=== PATIENT | female | born 1980 ===

== ENCOUNTER 2017-05-26 18:43 | Emergency (ER) | payer MEDICAID ==
[2017-05-26 18:56] VITALS: BP 127/92; RESP 18; TEMP 98.2; O2SAT 100
--- NOTE | 2017-05-26 19:12 | ED PDOC ---
Arrival/HPI - General Chief Complaint: Chest Pain Time Seen by Provider: 05/26/17 18:49 Historian: Patient - History of Present Illness Time/Duration: Other (2 days) Symptom Onset: Gradual Symptom Course: Worsening Quality: Aching Severity Level: Mild Activities at Onset: Rest Associated Symptoms (Text): 05/26/17 19:10 Patient complains of a 2 day history of increasing shortness of breath. She states that her breathing feels tight. She also has bilateral upper back pain and bilateral chest pain. No cough congestion or URI. No trauma. No fever or chills. No abdominal pain nausea vomiting. No diaphoresis. She has never experienced this previously. She appears comfortable and in no distress. Past Medical History - Cardiac Hx Cardiac Disorders: No - Pulmonary Hx Respiratory Disorders: No - Neurological Hx Neurological Disorder: No - HEENT Hx HEENT Disorder: No - Renal Hx Renal Disorder: No - Endocrine/Metabolic Hx Endocrine Disorders: No - Hematological/Oncological Hx Blood Disorders: No - Integumentary Hx Dermatological Disorder: No - Musculoskeletal/Rheumatological Hx Musculoskeletal Disorders: No - Gastrointestinal Hx Gastrointestinal Disorders: No - Genitourinary/Gynecological Hx Genitourinary Disorders: No - Psychiatric Hx Psychophysiologic Disorder: No Hx Substance Use: No Family/Social History - Physician Review Nursing Documentation Reviewed: Yes Family/Social History: Unknown Family HX Smoking Status: Light Smoker < 10 Cigarettes Daily Hx Alcohol Use: Yes (weekends) Hx Substance Use: No Allergies/Home Meds Allergies/Adverse Reactions: Allergies No Known Allergies Allergy (Verified 05/26/17 18:51) Review of Systems - Physician Review All systems were reviewed & negative as marked: Yes - Review of Systems Constitutional: Normal ENT: Normal Respiratory: SOB. absent: Cough, Sputum, Wheezing Cardiovascular: Chest Pain. absent: Palpitations, Syncope Gastrointestinal: absent: Abdominal Pain, Constipation, Diarrhea, Nausea, Vomiting Genitourinary Female: absent: Dysuria, Frequency, Hematuria Neurological: absent: Headache, Dizziness, Focal Weakness Physical Exam Vital Signs Temp Resp BP Pulse Ox 05/26/17 18:43 98.2 F 18 127/92 H 100 Temperature: Afebrile Blood Pressure: Normal Pulse: Regular Respiratory Rate: Normal Appearance: Positive for: Well-Appearing, Non-Toxic, Comfortable Pain Distress: Mild Mental Status: Positive for: Alert and Oriented X 3 - Systems Exam Head: Present: Atraumatic, Normocephalic Pupils: Present: PERRL Extroacular Muscles: Present: EOMI Conjunctiva: Present: Normal Ears: Present: NORMAL TM, Normal Canal. No: Erythema Mouth: Present: Moist Mucous Membranes Pharnyx: No: ERYTHEMA, EXUDATE, TONSILS ENLARGED Neck: Present: Normal Range of Motion Respiratory/Chest: Present: Clear to Auscultation, Good Air Exchange, Decreased Breath Sounds, Tender to Palpation (Chest tenderness which reproduces her discomfort.). No: Respiratory Distress, Accessory Muscle Use Cardiovascular: Present: Regular Rate and Rhythm, Normal S1, S2. No: Murmurs Abdomen: Present: Normal Bowel Sounds. No: Tenderness, Distention, Peritoneal Signs, Rebound, Guarding Back: Present: Normal Inspection. No: CVA Tenderness, Midline Tenderness, Paraspinal Tenderness Upper Extremity: Present: Normal Inspection. No: Cyanosis, Edema Lower Extremity: Present: Normal Inspection. No: Edema Neurological: Present: GCS=15, CN II-XII Intact, Speech Normal, Motor Func Grossly Intact Skin: Present: Warm, Dry, Normal Color. No: Rashes Psychiatric: Present: Alert, Oriented x 3, Normal Insight, Normal Concentration Medical Decision Making ED Course and Treatment: 05/26/17 19:12 EKG shows normal sinus rhythm rate approximately [address] or T-wave changes. Pulse oximetry is 100% on room air. 05/26/17 20:31 Symptoms markedly improved post Toradol and DuoNeb. - Lab Interpretations Lab Results: 05/26/17 19:35 05/26/17 19:35 Lab Results 05/26/17 19:35: Sodium 138, Potassium 3.3 L, Chloride 97, Carbon Dioxide 32, Anion Gap 12, BUN 10, Creatinine 0.7, Est GFR ( Amer) > 60, Est GFR (Non- Af Amer) > 60, Random Glucose 97, Calcium 9.6, Total Bilirubin 1.0, AST 49 H, ALT 50, Alkaline Phosphatase 60, Lactate Dehydrogenase 371, Total Creatine Kinase 78, Troponin I < 0.01, NT-Pro-B Natriuret Pep 46.5, Total Protein 7.5, Albumin 4.5, Globulin 3.0, Albumin/Globulin Ratio 1.5 05/26/17 19:35: D-Dimer, Quantitative 0.20 05/26/17 19:35: WBC 7.0, RBC 4.48, Hgb 14.3, Hct 40.5, MCV 90.4, MCH 31.9, MCHC 35.3, RDW 13.1, Plt Count 223, MPV 10.1, Gran % 48.1 L, Lymph % (Auto) 39.7 H, [place] % (Auto) 8.7 H, Eos % (Auto) 2.6, Baso % (Auto) 0.9, Gran # 3.37, Lymph # 2.8, [place] # 0.6, Eos # 0.2, Baso # 0.06 - RAD Interpretation Radiology Orders: 05/26/17 19:21 CHEST PORTABLE [RAD] Stat Chest: One view shows no infiltrate effusion or cardiomegaly. No pneumothorax. Sole Conforming Machine Operator: ED Physician - Medication Orders Current Medication Orders: Potassium Chloride (K-Dur 20 Meq Er Tab) 20 meq PO STAT STA Stop: 05/26/17 20:26 Discontinued Medications Albuterol/Ipratropium (Duoneb 3 Mg/0.5 Mg (3 Ml) Ud) 3 ml IH ONCE STA Stop: 05/26/17 19:22 Last Admin: 05/26/17 19:54 Dose: 3 ml Ketorolac Tromethamine (Toradol) 30 mg IVP ONCE ONE Stop: 05/26/17 19:22 Last Admin: 05/26/17 19:54 Dose: 30 mg MAR Pain Assessment Document 05/26/17 19:54 SS (Rec: 05/26/17 19:55 SS [id number]) Pain Reassessment Is this a pain reassessment? No Sleep Is patient sleeping during reassessment? No Presence of Pain Presence of Pain Yes IVP Administration Document 05/26/17 19:54 SS (Rec: 05/26/17 19:55 SS [id number]) Charges for Administration # of IVP Administrations 1 Disposition/Present on Arrival - Present on Arrival Any Indicators Present on Arrival: No History of DVT/PE: No History of Uncontrolled Diabetes: No Urinary Catheter: No History of Decub. Ulcer: No History Surgical Site Infection Following: None - Disposition Have Diagnosis and Disposition been Completed?: Yes Diagnosis: Dyspnea, Pleurisy Disposition: HOME/ ROUTINE Disposition Time: 20:31 Patient Plan: Discharge Condition: IMPROVED Discharge Instructions (ExitCare): Pleurisy (ED), Dyspnea (ED) Additional Instructions: Follow-up with PMD. Follow-up in the ER as needed. Prescriptions: Naproxen [Naprosyn] 500 mg PO BID #14 tab Albuterol HFA [Ventolin HFA 90 mcg/actuation (8 g)] 2 puff IH [id number] #1 puff Forms: [employer] (Lao)
[2017-05-26] MEDS ORDERED: Albuterol-Ipratrop 3 mg / 0.5 (3 ml) UD IH STA (19:21)
[2017-05-26 20:04] LABS: ALB/GLOB RATIO 1.5 (1.1-1.8); ALKALINE PHOSPHATASE 60 U/L (38-126); ALT/SGPT 50 U/L (7-56); AST/SGOT 49 U/L (14-36); BLOOD UREA NITROGEN 10 mg/dL (7-21); CALCIUM 9.6 mg/dL (8.4-10.5); CARBON DIOXIDE 32 mmol/L (21-33); CHLORIDE 97 mmol/L (95-110); GFR AFRICAN-AMERICAN > 60; GLUCOSE,RANDOM 97 mg/dL (70-110); POTASSIUM 3.3 mmol/L (3.6-5.0); SODIUM 138 mmol/L (132-148); TOTAL PROTEIN 7.5 g/dL (5.8-8.3)
[2017-05-26 20:10] LABS: TROPONIN I < 0.01 ng/mL
[2017-05-26 20:18] LABS: BASO # 0.06 K/mm3 (0.0-2.0); BASO % 0.9 % (0.0-3.0); EOS # 0.2 (0.0-0.7); EOS % 2.6 % (1.5-5.0); GRAN # 3.37 (1.4-6.5); GRAN % 48.1 % (50.0-68.0); HEMATOCRIT 40.5 % (36.0-48.0); LYMPH # 2.8 (1.2-3.4); LYMPH % 39.7 % (22.0-35.0); MEAN CELL VOLUME 90.4 fl (80.0-105.0); MEAN CORPUSCULAR HEMOGLOBIN 31.9 pg (25.0-35.0); MEAN CORPUSCULAR HGB CONC 35.3 g/dl (31.0-37.0); MEAN PLATELET VOLUME 10.1 fl (7.0-11.0); MONO # 0.6 (0.1-0.6); MONO % 8.7 % (1.0-6.0); RED CELL DISTRIBUTION WIDTH 13.1 % (11.5-14.5)
[2017-05-26] MEDS ORDERED: Potassium Chloride 20 mEq ER Tab PO STA (20:25)
--- NOTE | 2017-05-27 08:48 | RAD ---
HISTORY: cp COMPARISON: No prior. FINDINGS: LUNGS: No active pulmonary disease. PLEURA: No significant pleural effusion identified, no pneumothorax apparent. CARDIOVASCULAR: Normal. OSSEOUS STRUCTURES: No significant abnormalities. VISUALIZED UPPER ABDOMEN: Normal. OTHER FINDINGS: None. IMPRESSION: No active disease.
--- NOTE | 2017-05-27 22:20 | CARD ---
APPROVED REPORT EKG Measurement Heart [id number] <Conclusion> Normal sinus rhythm Normal ECG
== END 2017-05-26 20:51 | disposition home or self-care (01) ==
LOC: ED 18:43
DX: R09.1 Pleurisy (principal); R06.00 Dyspnea, unspecified; F17.210 Nicotine dependence, cigarettes, uncomplicated
CPT/HCPCS: 71010; 80053; 82550; 83615; 83880; 84484; 85025; 85378; 93005; 96374; 99283; J1885

== ENCOUNTER 2018-02-05 21:18 | Emergency (ER) | payer MEDICAID ==
[2018-02-05 21:31] VITALS: PULSE 80; TEMP 98.9; O2SAT 100
[2018-02-05] MEDS ORDERED: Tmp-Smz 800 mg-160 mg DS Tab PO STA (21:52)
--- NOTE | 2018-02-05 21:58 | ED PDOC ---
Arrival/HPI - General Historian: Patient - History of Present Illness Time/Duration: < week Symptom Onset: Sudden Symptom Course: Worsening Quality: Burning Severity Level: 4 <Harry Marks - Last Filed: 02/05/18 22:02> - History of Present Illness Activities at Onset: Rest Context: Home <Lamberto Wei - Last Filed: 02/06/18 19:36> - General Chief Complaint: Female Genitourinary Time Seen by Provider: 02/05/18 21:38 - History of Present Illness Narrative History of Present Illness (Text): 37 year old female presents burning with pain while urinating which began Friday. Patient states since yesterday she has also seen blood when she wipes after urinating. Patient has taken Motrin, cystic, and other home remedies with no help. Patient denies fever, chills, SOB, CP, abdominal pain, nausea, vomiting or any other complaints. Patient states last menstrual period was Friday and normal flow. 02/05/18 21:55 (Harry Marks) Past Medical History - Provider Review Nursing Documentation Reviewed: Yes - Cardiac Hx Cardiac Disorders: No - Pulmonary Hx Respiratory Disorders: No - Neurological Hx Neurological Disorder: No - HEENT Hx HEENT Disorder: No - Renal Hx Renal Disorder: No - Endocrine/Metabolic Hx Endocrine Disorders: No - Hematological/Oncological Hx Blood Disorders: No - Integumentary Hx Dermatological Disorder: No - Musculoskeletal/Rheumatological Hx Musculoskeletal Disorders: No - Gastrointestinal Hx Gastrointestinal Disorders: No - Genitourinary/Gynecological Hx Genitourinary Disorders: No - Psychiatric Hx Psychophysiologic Disorder: No Hx Substance Use: No <Harry Marks - Last Filed: 02/05/18 22:02> - Travel History Have you recently traveled outside [place] w/in the past 3 mons?: No - Past History Past History: Non-Contributing - Infectious Disease Hx of Infectious Diseases: None - Reproductive Currently : Unknown <Lamberto Wei - Last Filed: 02/06/18 19:36> Family/Social History - Physician Review Nursing Documentation Reviewed: Yes Family/Social History: No Known Family HX Smoking Status: Light Smoker < 10 Cigarettes Daily Hx Alcohol Use: Yes (weekends) Hx Substance Use: No <Harry Marks - Last Filed: 02/05/18 22:02> Hx Substance Use Treatment: No <Lamberto Wei - Last Filed: 02/06/18 19:36> Allergies/Home Meds <Harry Marks - Last Filed: 02/05/18 22:02> <Lamberto Wei - Last Filed: 02/06/18 19:36> Allergies/Adverse Reactions: Allergies No Known Allergies Allergy (Verified 02/05/18 21:27) Review of Systems - Review of Systems Constitutional: Normal Eyes: Normal ENT: Normal Respiratory: Normal Cardiovascular: Normal Gastrointestinal: Normal Genitourinary Female: Dysuria, Frequency, Hematuria. absent: Normal Musculoskeletal: Normal Skin: Normal Neurological: Normal Endocrine: Normal Hemo/Lymphatic: Normal Psychiatric: Normal <Harry Marks - Last Filed: 02/05/18 22:02> Physical Exam Temperature: Afebrile Blood Pressure: Hypertensive Pulse: Regular Respiratory Rate: Normal Appearance: Positive for: Well-Appearing, Non-Toxic, Comfortable Pain Distress: Mild Mental Status: Positive for: Alert and Oriented X 3 - Systems Exam Head: Present: Atraumatic, Normocephalic Pupils: Present: PERRL Extroacular Muscles: Present: EOMI Conjunctiva: Present: Normal Mouth: Present: Moist Mucous Membranes Neck: Present: Normal Range of Motion Respiratory/Chest: Present: Clear to Auscultation. No: Respiratory Distress Cardiovascular: Present: Regular Rate and Rhythm, Normal S1, S2. No: Murmurs Abdomen: Present: Normal Bowel Sounds. No: Tenderness, Distention Genitourinary/Pelvic Exam: No: Adenexal Tenderness Upper Extremity: No: Edema Lower Extremity: No: Edema Neurological: Present: GCS=15, CN II-XII Intact Skin: Present: Warm <Harry Marks - Last Filed: 02/05/18 22:02> - Systems Exam Back: Present: Normal Inspection. No: CVA Tenderness, Midline Tenderness Upper Extremity: Present: Normal Inspection, Normal ROM, NORMAL PULSES Lower Extremity: Present: Normal Inspection, NORMAL PULSES, Normal ROM Neurological: Present: Speech Normal Skin: Present: Normal Color Psychiatric: Present: Alert, Oriented x 3 <Lamberto Wei - Last Filed: 02/06/18 19:36> Vital Signs Temp Pulse Resp BP Pulse Ox 02/05/18 22:12 80 16 138/88 100 02/05/18 21:28 98.9 F 80 18 142/91 H 100 Medical Decision Making - Lab Interpretations I have reviewed the lab results: Yes <Harry Marks - Last Filed: 02/05/18 22:02> Re-evaluation Time: 23:00 Reassessment Condition: Improving,but remains with symptoms - Lab Interpretations Interpretation: Abnormal lab values (+ UTI) <Lamberto Wei - Last Filed: 02/06/18 19:36> ED Course and Treatment: Plan -UA, urine culture -Bactrim, motrin, pyridium -reasses -DC with abx and pyridium 02/05/18 21:58 (Harry Marks) I performed the hx and physical exam of the patient and discussed their mgt with the RESIDENT. I reviewed the RESIDENT's NOTE and agree with the assessment and plan of care. exam: General: alert/awake, GCS = 15, oriented x 3, resting in bed, mildly ununcomfortable, cooperative, interactive; NAD Head: NC/AT EYE: PERRLA, EOMI, sclera anicteric, no nystagmus, no photophobia Facial: WNL Oral: uvula/tongue are midline, no exudate/lesions, no drooling/stridor, no dysphonia; intact dentitions NECK: intact ROM, no midline tenderness, no nuchal rigidity, no meningeal signs ; no step off Chest: CTA b/l, no w/r/r; no tachypenia, no accessory muscle use noted Cardiac: +S1, +S2, no m/r/r, no tachycardia Abdominal: +BS, soft/nd/nt, well nourished patient; no masses/rebound/guarding/ rigidity; no ambriz's sign, no mcburney's point tenderness Extremities: intact ROM, strength 5/5 grossly intact in all limbs, neurovasc intact b/l; + ambulatory; reflex +2/2 BACK: no step off, no midline tenderness, NO crepitus, no gross deformities noted; Intact ROM; no cvat b/l SKIN: cap refill < 1 sec, no ulcerations, no petechiae, no rashes pt is made aware of her medical results pt is encouraged fluid hydration pt is encouraged voiding post sexual intercourse to prevent UTI pt will f/u as directed pt will be discharged home (Lamberto Wei) - Lab Interpretations Lab Results: Lab Results 02/05/18 22:00: Urine Color Yellow, Urine Appearance Clear, Urine pH 7.0, Ur Specific [place] 1.020, Urine Protein 100 H, Urine Glucose (UA) Negative, Urine Ketones Negative, Urine Blood Large H, Urine Nitrate Negative, Urine Bilirubin Negative, Urine Urobilinogen 0.2, Ur Leukocyte Esterase Large H, Urine RBC 25 - 30, Urine WBC 25 - 30, Ur Epithelial Cells 6 - 8, Urine Bacteria Many - Medication Orders Current Medication Orders: Discontinued Medications Ibuprofen (Motrin Tab) 800 mg PO STAT STA Stop: 02/05/18 22:02 Last Admin: 02/05/18 22:19 Dose: 800 mg Phenazopyridine HCl (Pyridium) 100 mg PO STAT STA Stop: 02/05/18 21:51 Last Admin: 02/05/18 22:19 Dose: 100 mg Trimethoprim/Sulfamethoxazole (Bactrim Ds Tab) 1 tab PO STAT STA PRN Reason: Protocol Stop: 02/05/18 21:53 Last Admin: 02/05/18 22:20 Dose: 1 tab Disposition/Present on Arrival - Present on Arrival Any Indicators Present on Arrival: No History of DVT/PE: No History of Uncontrolled Diabetes: No Urinary Catheter: No History of Decub. Ulcer: No History Surgical Site Infection Following: None - Disposition Have Diagnosis and Disposition been Completed?: Yes Disposition Time: 22:00 <Harry Marks - Last Filed: 02/05/18 22:02> - Disposition Patient Plan: Discharge <Lamberto Wei - Last Filed: 02/06/18 19:36> - Disposition Diagnosis: UTI (urinary tract infection) Disposition: HOME/ ROUTINE Condition: GOOD Discharge Instructions (ExitCare): Urinary Tract Infection, Adult (DC) Print Language: ARABIC Additional Instructions: Please take antibiotics two times a day for 7 days. Please take Phenazopyridine 3 times a day for 2 days. Please drink lots of water. Prescriptions: Phenazopyridine HCl 100 mg PO TID #5 tablet Sulfamethoxazole/Trimethoprim [Bactrim DS 800 mg-160 mg] 1 tab PO DAILY #13 tab Forms: [employer] (Austrian)
[2018-02-05 22:06] LABS: URINE BILIRUBIN NEGATIVE (NEGATIVE); URINE BLOOD LARGE (NEGATIVE); URINE GLUCOSE (UA) NEGATIVE (NEGATIVE); URINE LEUKOCYTE ESTERASE LARGE Leu/uL (NEGATIVE); URINE PROTEIN 100 mg/dL (<30 mg/dL); URINE UROBILINOGEN 0.2 E.U./dL (<1 E.U./dL)
[2018-02-05 22:07] LABS: URINE APPEARANCE CLEAR (CLEAR); URINE COLOR YELLOW (YELLOW)
[2018-02-05 22:14] LABS: URINE BACTERIA MANY (NEG); URINE RBC 25 - 30 /hpf (0-2); URINE WBC 25 - 30 /hpf (0-6)
[2018-02-05 23:01] VITALS: BP 138/88; RESP 16
== END 2018-02-05 22:12 | disposition home or self-care (01) ==
LOC: ED 21:18
DX: N39.0 Urinary tract infection, site not specified (principal)

== ENCOUNTER 2018-07-20 10:03 | Emergency (ER) | payer MEDICAID ==
[2018-07-20 10:14] VITALS: BMI 22.7
[2018-07-20 10:16] VITALS: TEMP 98.4; O2SAT 100
[2018-07-20] MEDS ORDERED: Sodium Chloride 0.9% 1,000 ML IV STA (10:48)
[2018-07-20 11:01] VITALS: RESP 18
[2018-07-20 11:38] LABS: BASO # 0.05 K/mm3 (0.0-2.0); BASO % 0.9 % (0.0-3.0); EOS # 0.1 (0.0-0.7); GRAN # 3.05 (1.4-6.5); HEMOGLOBIN 13.5 g/dL (12.0-16.0); LYMPH # 1.9 (1.2-3.4); LYMPH % 33.4 % (22.0-35.0); MEAN CORPUSCULAR HEMOGLOBIN 32.6 pg (25.0-35.0); MEAN CORPUSCULAR HGB CONC 35.4 g/dl (31.0-37.0); MEAN PLATELET VOLUME 8.9 fl (7.0-11.0); MONO # 0.5 (0.1-0.6); MONO % 8.7 % (1.0-6.0); RBC 4.14 10^6/uL (3.5-6.1); RED CELL DISTRIBUTION WIDTH 13.2 % (11.5-14.5); WHITE BLOOD COUNT 5.5 10^3/uL (4.5-11.0)
[2018-07-20 11:50] LABS: INR 0.98; PARTIAL THROMBOPLASTIN TIME 30.8 Seconds (25.1-36.5); PROTHROMBIN TIME 11.3 SECONDS (9.4-12.5)
[2018-07-20 11:51] LABS: URINE APPEARANCE CLEAR (CLEAR); URINE BILIRUBIN NEGATIVE (NEGATIVE); URINE BLOOD NEGATIVE (NEGATIVE); URINE COLOR YELLOW (YELLOW); URINE GLUCOSE (UA) NEGATIVE (NEGATIVE); URINE LEUKOCYTE ESTERASE NEGATIVE Leu/uL (NEGATIVE); URINE PROTEIN NEGATIVE mg/dL (<30 mg/dL); URINE UROBILINOGEN 0.2 E.U./dL (<1 E.U./dL)
[2018-07-20 12:01] LABS: ALB/GLOB RATIO 1.3 (1.1-1.8); ALBUMIN 4.5 g/dL (3.0-4.8); ALT/SGPT 21 U/L (7-56); AST/SGOT 22 U/L (14-36); BLOOD UREA NITROGEN 8 mg/dL (7-21); CALCIUM 9.4 mg/dL (8.4-10.5); GFR NON-AFRICAN AMERICAN > 60
[2018-07-20] MEDS ORDERED: Potassium Chloride 20 mEq ER Tab PO STA (12:03)
[2018-07-20 12:11] LABS: HCG,QUALITATIVE URINE POSITIVE (NEGATIVE)
--- NOTE | 2018-07-20 13:08 | US ---
Date of service: 07/20/2018 HISTORY: vaginal bleeding/ COMPARISON: None available. TECHNIQUE: Endovaginal ultrasound examination of the pelvis was performed. FINDINGS: UTERUS: Measures 8.2 x 4.7 x 5.9 cm. Normal in size and appearance. No fibroid or other mass lesion seen. ENDOMETRIUM: Measures 6.1 mm in diameter. Unremarkable. CERVIX: No cervical abnormality identified. RIGHT OVARY: Measures 2.6 x 2.8 x 1.4 cm. No solid mass. Normal flow. LEFT OVARY: Measures 3.3 x 1.6 x 3.4 cm. No solid mass. Normal flow. FREE FLUID: No significant free fluid noted. OTHER FINDINGS: None. IMPRESSION: No evidence of intrauterine . Correlation with beta HCG level is suggested.
--- NOTE | 2018-07-20 13:20 | ED PDOC ---
Arrival/HPI - General Chief Complaint: Female Genitourinary Historian: Patient - History of Present Illness Narrative History of Present Illness (Text): 07/20/18 13:17 37yo female with no pmhx who present with complaint of vaginal bleeding and intermittent lower abdominal pain x days. Patient reports history of irregular period . States she took a home test on Friday and it was positive. Notes that she has been on herbal medication to cleanse out her uterus and has been smoking. States she came to ED for the termination of the . Denies fever,chills, nausea, vomiting, diarrhea, constipation, any other complaint. Past Medical History - Past History Past History: Non-Contributing - Infectious Disease Hx of Infectious Diseases: None - Cardiac Hx Cardiac Disorders: No - Pulmonary Hx Respiratory Disorders: No - Neurological Hx Neurological Disorder: No - HEENT Hx HEENT Disorder: No - Renal Hx Renal Disorder: No - Endocrine/Metabolic Hx Endocrine Disorders: No - Hematological/Oncological Hx Blood Disorders: No - Integumentary Hx Dermatological Disorder: No - Musculoskeletal/Rheumatological Hx Musculoskeletal Disorders: No - Gastrointestinal Hx Gastrointestinal Disorders: No - Genitourinary/Gynecological Hx Genitourinary Disorders: No - Psychiatric Hx Psychophysiologic Disorder: No Hx Substance Use: No Family/Social History - Physician Review Nursing Documentation Reviewed: Yes Family/Social History: Unknown Family HX Smoking Status: Light Smoker < 10 Cigarettes Daily Hx Alcohol Use: Yes (weekends) Hx Substance Use: No Hx Substance Use Treatment: No Allergies/Home Meds Allergies/Adverse Reactions: Allergies No Known Allergies Allergy (Verified 07/20/18 10:15) Home Medications: Home Meds Medication Instructions Recorded Confirmed RX: No Known Home Med 07/20/18 07/20/18 Review of Systems - Physician Review All systems were reviewed & negative as marked: Yes - Review of Systems Constitutional: Normal Eyes: Normal ENT: Normal Respiratory: Normal Cardiovascular: Normal Gastrointestinal: Abdominal Pain. absent: Constipation, Diarrhea, Nausea, Vomiting, Hematochezia, Hematemesis Genitourinary Female: Vaginal Bleeding. absent: Dysuria, Frequency Musculoskeletal: Normal Skin: Normal Neurological: Normal Endocrine: Normal Hemo/Lymphatic: Normal Psychiatric: Normal Physical Exam Vital Signs Reviewed: Yes Vital Signs Temp Pulse Resp BP Pulse Ox 07/20/18 12:00 58 L 18 121/69 100 07/20/18 11:00 59 L 18 125/71 100 12/10/18 10:15 98.4 F 58 L 17 128/79 100 Temperature: Afebrile Blood Pressure: Normal Pulse: Regular Respiratory Rate: Normal Appearance: Positive for: Well-Appearing, Non-Toxic, Comfortable Pain Distress: None Mental Status: Positive for: Alert and Oriented X 3 - Systems Exam Head: Present: Atraumatic, Normocephalic Pupils: Present: PERRL Extroacular Muscles: Present: EOMI Conjunctiva: Present: Normal Mouth: Present: Moist Mucous Membranes Neck: Present: Normal Range of Motion Respiratory/Chest: Present: Clear to Auscultation, Good Air Exchange. No: Respiratory Distress, Accessory Muscle Use Cardiovascular: Present: Regular Rate and Rhythm, Normal S1, S2. No: Murmurs Abdomen: Present: Normal Bowel Sounds, Other (Soft). No: Tenderness, Distention, Peritoneal Signs, Rebound, Guarding, McBurney's Point Tender, Rovsing's Sign Present Genitourinary/Pelvic Exam: Present: Vaginal Bleeding (Very scanty vaginal blood noted in vault), Cervical os Closed Back: Present: Normal Inspection Upper Extremity: Present: Normal Inspection. No: Cyanosis, Edema Lower Extremity: Present: Normal Inspection. No: Edema Neurological: Present: GCS=15, CN II-XII Intact, Speech Normal Skin: Present: Warm, Dry, Normal Color. No: Rashes Psychiatric: Present: Alert, Oriented x 3, Normal Insight, Normal Concentration Medical Decision Making ED Course and Treatment: 07/20/18 18:50 PT in ED for stated history. she was not in any distress. Hemodynamically stable and comfortable. Labs Transvaginal US 1L NS Labs was reviewed and hypokalemia with K 2.9 noted. Potassium was repeleted in ED beta 3066.70 Transvaginal US IMPRESSION: No evidence of intrauterine . Correlation with beta HCG level is suggested. 07/20/18 18:54 All result was DW the pt. Pt likely had a spontaneous ab. Lab and US report was given to the pt and she was strongly instructed to f/u with a [facility] within 48hrs a repeat beta. - Lab Interpretations Lab Results: 07/20/18 11:00 07/20/18 11:00 Lab Results 07/20/18 11:40: Urine Color Yellow, Urine Appearance Clear, Urine pH 7.0, Ur Specific [place] 1.015, Urine Protein Negative, Urine Glucose (UA) Negative, Urine Ketones Negative, Urine Blood Negative, Urine Nitrate Negative, Urine Bilirubin Negative, Urine Urobilinogen 0.2, Ur Leukocyte Esterase Negative, Urine HCG, Qual Positive 07/20/18 11:00: Beta HCG, Quant 3066.70 H 07/20/18 11:00: Sodium 137, Potassium 2.9 L*, Chloride 100, Carbon Dioxide 30, Anion Gap 11, BUN 8, Creatinine 0.6 L, Est GFR ( Amer) > 60, Est GFR (Non-Af Amer) > 60, Random Glucose 100, Calcium 9.4, Total Bilirubin 0.6, AST 22, ALT 21, Alkaline Phosphatase 53, Total Protein 8.0, Albumin 4.5, Globulin 3.5, Albumin/Globulin Ratio 1.3 07/20/18 11:00: PT 11.3, INR 0.98, APTT 30.8 07/20/18 11:00: WBC 5.5, RBC 4.14, Hgb 13.5, Hct 38.1, MCV 92.0, MCH 32.6, MCHC 35.4, RDW 13.2, Plt Count 296, MPV 8.9, Gran % 55.0, Lymph % (Auto) 33.4, [place] % (Auto) 8.7 H, Eos % (Auto) 2.0, Baso % (Auto) 0.9, Gran # 3.05, Lymph # (Auto) 1.9, [place] # (Auto) 0.5, Eos # (Auto) 0.1, Baso # (Auto) 0.05 - RAD Interpretation Radiology Orders: 07/20/18 10:47 OB TRANSVAGINAL [US] Stat - Medication Orders Current Medication Orders: Potassium Chloride (Potassium Chloride 20 Meq/100 Ml) 20 meq in 100 mls @ 50 mls/hr IVPB Q2H STA Stop: 07/20/18 14:01 Last Admin: 07/20/18 12:52 Dose: 50 mls/hr eMAR Start Stop Document 07/20/18 12:52 EQ (Rec: 07/20/18 12:52 EQ [facility] – [id number]) Intravenous Solution Start Date 07/20/18 Start Time 12:52 Discontinued Medications Sodium Chloride (Sodium Chloride 0.9%) 1,000 mls @ 999 mls/hr IV .Q1H1M STA Stop: 07/20/18 11:48 Last Admin: 07/20/18 11:13 Dose: 999 mls/hr eMAR Start Stop Document 07/20/18 11:13 EQ (Rec: 07/20/18 11:14 EQ [id number]) Intravenous Solution Start Date 07/20/18 Start Time 11:13 Potassium Chloride (K-Dur 20 Meq Er Tab) 40 meq PO STAT STA Stop: 07/20/18 12:04 Last Admin: 07/20/18 12:53 Dose: 40 meq Disposition/Present on Arrival - Present on Arrival Any Indicators Present on Arrival: No History of DVT/PE: No History of Uncontrolled Diabetes: No Urinary Catheter: No History of Decub. Ulcer: No History Surgical Site Infection Following: None - Disposition Have Diagnosis and Disposition been Completed?: Yes Diagnosis: Spontaneous , Hypokalemia Disposition: HOME/ ROUTINE Disposition Time: 13:20 Patient Plan: Discharge Condition: STABLE Discharge Instructions (ExitCare): Hypokalemia, Miscarriage (DC) Additional Instructions: Follow up with your [facility] in 48hrs for a repeat lab test Return to ED for any new or worsening symptoms Referrals: Beatris Mon MD [Staff Provider] - Follow up with primary Forms: [employer] ([place]badian)
[2018-07-20 13:57] VITALS: BP 118/67; PULSE 59
== END 2018-07-20 15:07 | disposition home or self-care (01) ==
LOC: ED 10:03
DX: O03.9 Complete or unspecified spontaneous abortion without complication (principal); E87.6 Hypokalemia
CPT/HCPCS: 76817; 80053; 81003; 84702; 84703; 85025; 85610; 85730; 99284; J3480; J7030

== ENCOUNTER 2018-11-17 16:01 | Emergency (ER) | payer MEDICAID ==
[2018-11-17 17:08] VITALS: BMI 23.5
[2018-11-17 17:34] LABS: BASO # 0.05 K/mm3 (0.0-2.0); BASO % 0.6 % (0.0-3.0); EOS # 0.3 (0.0-0.7); EOS % 2.9 % (1.5-5.0); HEMOGLOBIN 14.9 g/dL (12.0-16.0); LYMPH # 2.4 (1.2-3.4); MEAN CELL VOLUME 91.5 fl (80.0-105.0); MEAN CORPUSCULAR HEMOGLOBIN 31.5 pg (25.0-35.0); MEAN CORPUSCULAR HGB CONC 34.4 g/dl (31.0-37.0); MEAN PLATELET VOLUME 9.2 fl (7.0-11.0); MONO # 0.5 (0.1-0.6); MONO % 5.8 % (1.0-6.0); RBC 4.73 10^6/uL (3.5-6.1); RED CELL DISTRIBUTION WIDTH 13.2 % (11.5-14.5); WHITE BLOOD COUNT 8.6 10^3/uL (4.5-11.0)
[2018-11-17 17:37] VITALS: BP 116/66; PULSE 71; RESP 18; TEMP 98; O2SAT 98
[2018-11-17 17:46] LABS: ALB/GLOB RATIO 1.2 (1.1-1.8); ALBUMIN 4.5 g/dL (3.0-4.8); ALT/SGPT 10 U/L (7-56); AST/SGOT 40 U/L (14-36); BLOOD UREA NITROGEN 12 mg/dL (7-21); CALCIUM 9.6 mg/dL (8.4-10.5); GFR NON-AFRICAN AMERICAN > 60
--- NOTE | 2018-11-17 18:00 | ED PDOC ---
Arrival/HPI <Michael Lake - Last Filed: 11/17/18 20:03> - General Historian: Patient - History of Present Illness Narrative History of Present Illness (Text): Patient is a 38 year old with no significant past medical history presenting with abdominal pain starting one week prior. Pain is constant and located on right and left side mid abdomen, characterized as dull ache with intermittent breakthrough stabbing sensations. Patient states symptoms are worsened with meal intake. Also admits to nausea, vomiting, constipation. Denies fevers, chills, chest pain, shortness of breath, dysuria. Time/Duration: 1 week Symptom Onset: Sudden Symptom Course: Unchanged Severity Level: 8 Activities at Onset: Rest <Esperanza Neil - Last Filed: 11/17/18 20:17> - General Chief Complaint: Abdominal Pain Time Seen by Provider: 11/17/18 16:04 Past Medical History - Provider Review Nursing Documentation Reviewed: Yes - Past History Past History: Non-Contributing - Infectious Disease Hx of Infectious Diseases: None - Past Medical History Past Medical History: Non-Contributing - Cardiac Hx Cardiac Disorders: No - Pulmonary Hx Respiratory Disorders: No - Neurological Hx Neurological Disorder: No - HEENT Hx HEENT Disorder: No - Renal Hx Renal Disorder: No - Endocrine/Metabolic Hx Endocrine Disorders: No - Hematological/Oncological Hx Blood Disorders: No - Integumentary Hx Dermatological Disorder: No - Musculoskeletal/Rheumatological Hx Musculoskeletal Disorders: No - Gastrointestinal Hx Gastrointestinal Disorders: No - Genitourinary/Gynecological Hx Genitourinary Disorders: No - Psychiatric Hx Psychophysiologic Disorder: No Hx Substance Use: No - Anesthesia Hx Anesthesia: No <Esperanza Neil - Last Filed: 11/17/18 20:17> Family/Social History - Physician Review Nursing Documentation Reviewed: Yes Family/Social History: No Known Family HX Smoking Status: Light Smoker < 10 Cigarettes Daily Hx Alcohol Use: Yes (weekends) Frequency of alcohol use: Daily Hx Substance Use: No Hx Substance Use Treatment: No <Esperanza Neil - Last Filed: 11/17/18 20:17> Allergies/Home Meds <Michael Lake - Last Filed: 11/17/18 20:03> <Esperanza Neil - Last Filed: 11/17/18 20:17> Allergies/Adverse Reactions: Allergies No Known Allergies Allergy (Verified 11/17/18 16:49) Review of Systems - Physician Review All systems were reviewed & negative as marked: Yes - Review of Systems Respiratory: Normal Cardiovascular: Normal Gastrointestinal: Abdominal Pain, Constipation, Nausea, Vomiting Genitourinary Female: Normal <NeilSilvinafeng Juárez - Last Filed: 11/17/18 20:17> Physical Exam Vital Signs Temp Pulse Resp BP Pulse Ox 11/17/18 17:36 98.0 F 71 18 116/66 98 <CristianMichael loco - Last Filed: 11/17/18 20:03> Vital Signs Reviewed: Yes Vital Signs Temp Pulse Resp BP Pulse Ox 11/17/18 17:36 98.0 F 71 18 116/66 98 Temperature: Afebrile Blood Pressure: Normal Pulse: Regular Respiratory Rate: Normal Appearance: Positive for: Well-Appearing, Comfortable Pain Distress: None Mental Status: Positive for: Alert and Oriented X 3 - Systems Exam Head: Present: Atraumatic, Normocephalic Pupils: Present: PERRL Extroacular Muscles: Present: EOMI Conjunctiva: Present: Normal Mouth: Present: Moist Mucous Membranes Respiratory/Chest: Present: Clear to Auscultation. No: Respiratory Distress, Accessory Muscle Use Cardiovascular: Present: Regular Rate and Rhythm, Normal S1, S2 Abdomen: Present: Tenderness (mild, right and left mid abdomen), Normal Bowel Sounds. No: Distention, Rebound, Guarding Lower Extremity: Present: Normal Inspection. No: Edema Neurological: Present: GCS=15, CN II-XII Intact, Speech Normal Skin: Present: Warm, Dry, Normal Color Psychiatric: Present: Alert, Oriented x 3 <Silvina Neilfeng Juárez - Last Filed: 11/17/18 20:17> Medical Decision Making ED Course and Treatment: In agreement with resident note, which includes further HPI details. Patient was seen and evaluated with resident, came up with plan and treatment together. 38 year old female presents complaining of abdominal pain for the past 1 week associated with nausea, vomiting, and constipation. Plan: -- CT Abd & Pelvis IV Contrast Only -- Labs -- Reassess and disposition - Lab Interpretations Lab Results: Total Bilirubin 0.7 mg/dL (0.2-1.3) 11/17/18 17:21 AST 40 U/L (14-36) H D 11/17/18 17:21 ALT 10 U/L (7-56) 11/17/18 17:21 Alkaline Phosphatase 62 U/L (38-126) 11/17/18 17:21 Total Protein 8.2 g/dL (5.8-8.3) 11/17/18 17:21 Albumin 4.5 g/dL (3.0-4.8) 11/17/18 17:21 Globulin 3.7 gm/dL 11/17/18 17:21 Albumin/Globulin Ratio 1.2 (1.1-1.8) 11/17/18 17:21 I have reviewed the lab results: Yes - RAD Interpretation Radiology Orders: 11/17/18 17:03 ABD & PELVIS IV CONTRAST ONLY [CT] Stat Professor Of Biological Sciences: Radiologist <Michael Lake - Last Filed: 11/17/18 20:03> ED Course and Treatment: Impression: Abdominal pain Differential Diagnosis included but are not limited to: constipation, ovarian cyst rupture Plan: - CBC/CMP - CT abd pelvis with IV contrast - Reassess and disposition Prior Visits: Notes and results from previous visits were reviewed. Progress Notes: CT abd/pelvis IMPRESSION: Diffuse enterocolitis. Infectious and inflammatory etiologies are considered. Labs and imaging reviewed. Patient hemodynamically stable, resting comfortably in chair eating dinner. Options for management reviewed with patient, patient opted for discharge with outpatient antibiotics and followup with primary medical doctor within one week. Patient discharged with prescription for ciprofloxacin and flagyl and instructed to return if symptoms worsen. - Lab Interpretations Lab Results: Total Bilirubin 0.7 mg/dL (0.2-1.3) 11/17/18 17:21 AST 40 U/L (14-36) H D 11/17/18 17:21 ALT 10 U/L (7-56) 11/17/18 17:21 Alkaline Phosphatase 62 U/L (38-126) 11/17/18 17:21 Total Protein 8.2 g/dL (5.8-8.3) 11/17/18 17:21 Albumin 4.5 g/dL (3.0-4.8) 11/17/18 17:21 Globulin 3.7 gm/dL 11/17/18 17:21 Albumin/Globulin Ratio 1.2 (1.1-1.8) 11/17/18 17:21 - RAD Interpretation Radiology Orders: 11/17/18 17:03 ABD & PELVIS IV CONTRAST ONLY [CT] Stat <Esperanza Neil - Last Filed: 11/17/18 20:17> - Scribe Statement The provider has reviewed the documentation as recorded by the Lauren Washington Provider Scribe Attestation: All medical record entries made by the Scribe were at my direction and personally dictated by me. I have reviewed the chart and agree that the record accurately reflects my personal performance of the history, physical exam, medical decision making, and the department course for this patient. I have also personally directed, reviewed, and agree with the discharge instructions and disposition. <NoelhollyMichael loco - Last Filed: 11/17/18 20:03> Disposition/Present on Arrival - Present on Arrival Any Indicators Present on Arrival: No - Disposition Have Diagnosis and Disposition been Completed?: Yes Disposition Time: 20:03 Patient Plan: Discharge <NoelhollyberonicaMichael - Last Filed: 11/17/18 20:03> - Present on Arrival History of DVT/PE: No History of Uncontrolled Diabetes: No Urinary Catheter: No History of Decub. Ulcer: No History Surgical Site Infection Following: None <Silvina Neilfeng Marquita - Last Filed: 11/17/18 20:17> - Disposition Diagnosis: Enteritis, Colitis Patient Problems: Current Active Problems Problem Status Onset Colitis Acute Enteritis Acute Discharge Instructions (ExitCare): Colitis (DC) Print Language: BRAZILIAN Additional Instructions: Please take medications as prescribed Please continue to hydrate with fluids at home Please follow up with your PCP in 1 week Prescriptions: Ciprofloxacin [Cipro] 500 mg PO BID 7 Days #14 tab Metronidazole [Flagyl] 500 mg PO TID 7 Days #21 tablet Referrals: Kenyetta Davis MD [Medical Doctor] - Follow up with primary [facility] [place] [Outside] - Follow up with primary Shelby Roper DO [Doctor Osteopathy] - Follow up with primary Forms: [employer] ([place]), WORK NOTE
[2018-11-17] MEDS ORDERED: Iohexol 350 MG/100 ML VIAL ONE (19:03)
--- NOTE | 2018-11-18 09:58 | CT ---
Date of service: 11/17/2018 PROCEDURE: CT Abdomen and Pelvis with contrast HISTORY: abd pain COMPARISON: None. TECHNIQUE: Contrast dose: 100 cc of Omni 350 Radiation dose: Total exam DLP = 317.42 mGy-cm. This CT exam was performed using one or more of the following dose reduction techniques: Automated exposure control, adjustment of the mA and/or kV according to patient size, and/or use of iterative reconstruction technique. FINDINGS: LOWER THORAX: Unremarkable. LIVER: Unremarkable. No gross lesion or ductal dilatation. GALLBLADDER AND BILE DUCTS: Unremarkable. PANCREAS: Unremarkable. No gross lesion or ductal dilatation. SPLEEN: Unremarkable. ADRENALS: Unremarkable. No mass. KIDNEYS AND URETERS: Unremarkable. No hydronephrosis. No solid mass. VASCULATURE: Unremarkable. No aortic aneurysm. No aortic atherosclerotic calcification or mural plaque present. BOWEL: There is fatty infiltration of the wall of the colon which can be seen in chronic inflammatory bowel disease. There are no acute changes. APPENDIX: Normal appendix. PERITONEUM: Unremarkable. No free fluid. No free air. LYMPH NODES: Unremarkable. No enlarged lymph nodes. BLADDER: Unremarkable. REPRODUCTIVE: Unremarkable. BONES: No acute fracture. OTHER FINDINGS: The report concurs with the preliminary [facility] report IMPRESSION: There is fatty infiltration of the wall of the colon which can be seen in chronic inflammatory bowel disease. There are no acute changes.
== END 2018-11-17 21:18 | disposition home or self-care (01) ==
LOC: ED 16:01
DX: K52.9 Noninfective gastroenteritis and colitis, unspecified (principal); F17.210 Nicotine dependence, cigarettes, uncomplicated
CPT/HCPCS: 74177; 80053; 81025; 83735; 84100; 85025; 99283; Q9967